=== PATIENT | female | born 1970 | race American Indian/Alaskan Native ===

== ENCOUNTER 2020-06-02 07:46 | Outpatient (CLI) | payer OTHER | END 2020-06-02 07:47 | disposition home or self-care (01) | LOC: PF 07:46 | PROVIDERS: ATTEND Internal Medicine | DX: J45.909 Unspecified asthma, uncomplicated (principal); I26.99 Other pulmonary embolism without acute cor pulmonale | CPT/HCPCS: 94010; 94729 ==